=== PATIENT | male | born 1930 | race Caucasian/White ===

== ENCOUNTER 2016-12-08 12:30 | Outpatient (RCR) | payer OTHER | END 2017-01-05 | disposition home or self-care (01) | LOC: PTY 12:30 | PROVIDERS: ATTEND Internal Medicine | DX: R26.89 Other abnormalities of gait and mobility (principal) ==

== ENCOUNTER 2017-01-10 14:34 | Outpatient (RCR) | payer OTHER | END 2017-02-05 | disposition home or self-care (01) | LOC: PTY 14:34 | PROVIDERS: ATTEND Internal Medicine | DX: R26.89 Other abnormalities of gait and mobility (principal) ==

== ENCOUNTER 2017-04-26 15:15 | Outpatient (RCR) | payer OTHER | END 2017-05-08 | disposition home or self-care (01) | LOC: PTY 15:15 | PROVIDERS: ATTEND Internal Medicine | DX: R26.89 Other abnormalities of gait and mobility (principal); F41.9 Anxiety disorder, unspecified ==

== ENCOUNTER 2017-05-24 13:45 | Outpatient (RCR) | payer OTHER | END 2017-06-07 | disposition home or self-care (01) | LOC: PTY 13:45 | PROVIDERS: ATTEND Internal Medicine | DX: R26.89 Other abnormalities of gait and mobility (principal) ==